=== PATIENT | male | born 1995 | race African-American/Black ===

== ENCOUNTER 2021-05-26 10:42 | Emergency (ER) | payer MEDICAID ==
[~2021-05-26] VITALS: Ht 175.3 cm; Wt 68.0 kg
[2021-05-26 12:16] LABS: BASOPHILS % 0.4 % (0.0-2.0); EOSINOPHILS % 0.2 % (0.0-5.0); HEMATOCRIT. 42.7 % (42.0-52.0); HEMOGLOBIN. 14.7 g/dL (14.0-18.0); LYMPHOCYTES % 19.1 % (20.0-50.0); MEAN CORPUSCULAR HEMOGLOBIN 29.6 pg (28.0-32.0); MEAN CORPUSCULAR VOLUME 86.2 fL (80.0-94.0); MEAN PLATELET VOLUME 7.6 fl (7.4-10.4); NEUTROPHILS % 73.3 % (40.0-76.0); PLATELET 363 x1000/uL (130-400); RED BLOOD CELL COUNT 4.96 mill/uL (4.7-6.1); RED CELL DISTRIBUTION WIDTH 14.3 % (11.6-14.6)
[2021-05-26 12:24] LABS: CHLORIDE 106 mEq/L (98-107)
[2021-05-26 12:28] LABS: ETHANOL BLOOD < 10 mg/dL
[2021-05-26 13:43] LABS: CLARITY URINE CLOUDY (CLEAR); COLOR URINE DARK YELLOW (YELLOW); KETONES URINE 3+ (NEGATIVE); LEUKOCYTE ESTERASE URINE TRACE (NEGATIVE); NITRITE URINE NEGATIVE (NEGATIVE); OCCULT BLOOD URINE NEGATIVE (NEGATIVE); PROTEIN URINE 1+ (NEGATIVE)
[2021-05-26 13:56] LABS: *AMPHETAMINES SCREEN URINE PRESUMTIVE POSITIVE (NEGATIVE)
[2021-05-26 13:57] LABS: *BARBITURATES SCREEN URINE NEGATIVE (NEGATIVE); *BENZODIAZEPINES SCREEN URINE NEGATIVE (NEGATIVE); *COCAINE SCREEN URINE NEGATIVE (NEGATIVE); METHADONE URINE SCREEN NEGATIVE (NEGATIVE); OPIATES URINE SCREEN NEGATIVE (NEGATIVE); PHENCYCLIDINE URINE SCREEN NEGATIVE (NEGATIVE)
[2021-05-26 13:58] LABS: CANNABINOID URINE SCREEN PRESUMTIVE POSITIVE (NEGATIVE)
[2021-05-26] MEDS ORDERED: LORAZEPAM 1MG TABLET PO ONE (16:00)
[2021-05-26] MEDS ORDERED: POTASSIUM CHLORIDE 20MEQ TABLET SR PO ONE (16:45)
[2021-05-26] MEDS ORDERED: CEFTRIAXONE SODIUM 1 G/VIAL IM ONE (16:45)
[2021-05-27] MEDS ORDERED: QUETIAPINE FUMARATE 50MG TABLET PO SCH ×2 (09:00→21:00)
[2021-05-27] MEDS ORDERED: DIVALPROEX SODIUM 500MG DR TABLET PO SCH (09:00)
[2021-05-27] MEDS ORDERED: ACETAMINOPHEN 325MG TABLET PO ONE (09:00)
[2021-05-27] MEDS ORDERED: BUPROPION HCL 150MG TABLET XL 24HR PO SCH (09:00)
[2021-05-27] MEDS ORDERED: LORAZEPAM 1MG TABLET PO ONE (17:15)
[2021-05-27] MEDS ORDERED: IBUPROFEN 600MG TABLET PO ONE (17:30)
[2021-05-27] MEDS ORDERED: TRAMADOL 50MG TABLET PO ONE (18:00)
[2021-05-27 18:57] VITALS: BP 112/68
[2021-05-27] MEDS ORDERED: PRAZOSIN HCL 1MG CAPSULE PO SCH (21:00)
[2021-05-27] MEDS ORDERED: TRAZODONE HCL 50MG TABLET PO SCH (21:00)
== END 2021-05-27 19:23 | disposition short-term general hospital (02) ==
LOC: ER 10:42
DX: R45.851 Suicidal ideations (principal); J45.909 Unspecified asthma, uncomplicated; Z20.822 Contact with and (suspected) exposure to COVID-19
CPT/HCPCS: 36415; 73030; 80053; 80305; 80320; 81003; 85025; 96372; 99285; C9803; J0696; U0003; U0005; G0480